=== PATIENT | male | born 1945 | race African-American/Black ===

== ENCOUNTER 2025-03-22 23:31 | Inpatient (IN) | payer OTHER ==
[~2025-03-22] VITALS: Ht 177.8 cm; Wt 81.4 kg
[2025-03-23] MEDS: SODIUM CHLORIDE 0.9% 1,000 ML IV ONE (01:31)
[2025-03-23 01:48] LABS: PLATELET COUNT (AUTO) 294 K/uL (150-450); RED BLOOD CELL COUNT(AUTO) 3.72 MIL/uL (4.50-5.90); RED CELL DISTRIBUTION WIDTH 13.2 % (11.5-14.5); WHITE BLOOD COUNT (AUTO) 10.1 K/uL (4.5-11.0)
[2025-03-23 02:02] LABS: CALCIUM, TOTAL 8.8 mg/dL (8.8-10.5); CREATININE 1.06 mg/dL (0.60-1.30); GLOMERULAR FILTR. RATE CALC > 60 mL/min (>60); GLUCOSE,RANDOM 105 mg/dL (70-110); SODIUM SERUM 138 mmol/L (136-145); UREA NITROGEN, BLOOD 33 mg/dL (7-18)
[2025-03-23 02:07] LABS: CREATINE KINASE, TOTAL ONLY 305 U/L (39-308)
[2025-03-23 02:11] LABS: TROPONIN I-HIGH SENSITIVITY 44 ng/L (<76)
[2025-03-23 07:09] LABS: APPEARANCE,URINE CLEAR (CLEAR); GLUCOSE, URINE (UA) NEGATIVE (NEGATIVE); LEUKOCYTE ESTERASE ,URINE NEGATIVE (NEGATIVE); NITRATE,URINE NEGATIVE (NEGATIVE); OCCULT BLOOD,URINE NEGATIVE (NEGATIVE); SPECIFIC GRAVITIY, URINE 1.014 (1.003-1.030)
[2025-03-23 08:49] VITALS: BP 170/93; PULSE 60; RESP 14; RESP 18; TEMP 97.7; O2SAT 100
[2025-03-23] MEDS ORDERED: ONDANSETRON HCL 4 MG/2 ML VIAL IVP PRN (11:15)
[2025-03-23] MEDS ORDERED: BISACODYL 10 MG RECTAL RECTAL SUPPOSITORY PR PRN (11:15)
[2025-03-23] MEDS ORDERED: ACETAMINOPHEN 325 MG TABLET PO PRN (11:15)
[2025-03-23] MEDS ORDERED: MAGNESIUM HYDROXIDE SUSPENSION 30 ML UDCUP PO PRN (11:15)
[2025-03-23] MEDS ORDERED: ZOLPIDEM TARTRATE 5 MG TABLET PO PRN (11:15)
[2025-03-23 12:00] VITALS: BP 151/96; PULSE 75; RESP 16; TEMP 98.2; O2SAT 97
[2025-03-23 13:19] LABS: PH,URINE DRUG SCREEN 7.0 (5.0-8.0)
[2025-03-23 13:25] LABS: ALCOHOL, URINE DRUG SCREEN NEGATIVE (NEGATIVE); AMPHET/METH SCREEN,URINE NEGATIVE (NEGATIVE); BARBITURATE SCREEN, URINE NEGATIVE (NEGATIVE); CANNABINOID SCREEN,URINE NEGATIVE (NEGATIVE); COCAINE SCREEN,URINE NEGATIVE (NEGATIVE); METHADONE SCREEN, URINE NEGATIVE (NEGATIVE)
[2025-03-23] MEDS: HEPARIN SODIUM,PORCINE 5,000 UNITS/ML VIAL SQ SCH (15:51)
[2025-03-23 16:00] VITALS: BP 145/90; PULSE 77; RESP 19; TEMP 98.1; O2SAT 100
[2025-03-23 20:00] VITALS: BP 151/96; PULSE 82; RESP 18; TEMP 97.7; O2SAT 97
[2025-03-23] MEDS: ATORVASTATIN CALCIUM 20 MG TABLET PO SCH (20:53)
[2025-03-23] MEDS: DOCUSATE SODIUM 100 MG CAPSULE PO SCH (20:53)
[2025-03-24] VITALS (9 sets, daily range): BP systolic 140–162; BP diastolic 81–104; PULSE 62–87; RESP 17–18; TEMP 97.5–98.8; O2SAT 94–100
[2025-03-24] MEDS: MORPHINE SULFATE 2 MG/ML SYRINGE IVP PRN (00:14)
[2025-03-24 06:09] LABS: PLATELET COUNT (AUTO) 319 K/uL (150-450); RED BLOOD CELL COUNT(AUTO) 4.23 MIL/uL (4.50-5.90); RED CELL DISTRIBUTION WIDTH 13.5 % (11.5-14.5); WHITE BLOOD COUNT (AUTO) 8.3 K/uL (4.5-11.0)
[2025-03-24 06:23] LABS: CALCIUM, TOTAL 9.3 mg/dL (8.8-10.5); CREATININE 0.91 mg/dL (0.60-1.30); GLOMERULAR FILTR. RATE CALC > 60 mL/min (>60); GLUCOSE,RANDOM 108 mg/dL (70-110); SODIUM SERUM 137 mmol/L (136-145); UREA NITROGEN, BLOOD 22 mg/dL (7-18)
[2025-03-24 06:45] LABS: CHOL/HDL RATIO 3.2 (4.2-7.3); LDL CHOL (CALC.) 85.0 mg/dL (0-130)
[2025-03-24] MEDS: PANTOPRAZOLE SODIUM 40 MG DR TABLET PO SCH (08:17)
[2025-03-24] MEDS ORDERED: MORPHINE SULFATE 4 MG/ML VIAL IVP PRN (14:30)
[2025-03-24] MEDS: SERTRALINE HCL 50 MG TABLET PO SCH (20:22)
[2025-03-24] MEDS: HYDROCODONE/ACETAMINOPHEN 5-325 MG TABLET PO PRN (23:56)
[2025-03-25 00:10] VITALS: BP 155/95; PULSE 68; RESP 18; TEMP 98.6; O2SAT 93
[2025-03-25 05:49] LABS: PLATELET COUNT (AUTO) 328 K/uL (150-450); RED BLOOD CELL COUNT(AUTO) 4.05 MIL/uL (4.50-5.90); RED CELL DISTRIBUTION WIDTH 13.1 % (11.5-14.5); WHITE BLOOD COUNT (AUTO) 7.5 K/uL (4.5-11.0)
[2025-03-25 05:58] VITALS: BP 150/91; PULSE 64; RESP 18; TEMP 98.1; O2SAT 93
[2025-03-25 06:01] LABS: CALCIUM, TOTAL 8.9 mg/dL (8.8-10.5); CREATININE 0.94 mg/dL (0.60-1.30); GLOMERULAR FILTR. RATE CALC > 60 mL/min (>60); GLUCOSE,RANDOM 107 mg/dL (70-110); SODIUM SERUM 137 mmol/L (136-145); UREA NITROGEN, BLOOD 25 mg/dL (7-18)
[2025-03-25 08:16] VITALS: BP 161/96; PULSE 62; RESP 18; TEMP 97.7; O2SAT 98
[2025-03-25 11:50] VITALS: BP 159/87; PULSE 68; RESP 18; TEMP 98; O2SAT 97
[2025-03-25 15:25] VITALS: BP 149/81; PULSE 64; RESP 19; TEMP 97.9; O2SAT 100
== END 2025-03-25 18:45 | DRG 73 ==
LOC: EMS 23:50 → EDH 03-23 06:03 → UNDOADMIN 03-23 06:09 → EDH 03-23 06:09 → 5S 03-23 08:43
PROVIDERS: ADMIT Internal Medicine; ATTEND Internal Medicine
DX: G90.89 Other disorders of autonomic nervous system (principal); N18.6 End stage renal disease; I12.0 Hypertensive chronic kidney disease with stage 5 chronic kidney disease or end stage renal disease; F11.20 Opioid dependence, uncomplicated; M54.9 Dorsalgia, unspecified; G89.29 Other chronic pain; K21.9 Gastro-esophageal reflux disease without esophagitis; D64.9 Anemia, unspecified; E78.00 Pure hypercholesterolemia, unspecified; F43.10 Post-traumatic stress disorder, unspecified; Z88.0 Allergy status to penicillin; Z79.899 Other long term (current) drug therapy
CPT/HCPCS: 70450; 71045; 72125; 73700; 80048; 80061; 80307; 81003; 82550; 83880; 84443; 84484; 85025; 85610; 85730; 93005; 93306; 93880; 96360; 97162; 97166; 97530; 99285; J1644; J2270; 36415-L1; 36415-TC